=== PATIENT | female | born 1940 | race Caucasian/White ===

== ENCOUNTER 2017-01-27 06:31 | Day surgery (SDC) | payer MEDICARE, OTHER ==
--- NOTE | ~2017-01-27 | EGD ---
EGD REPORT [facility] [address] [address] NAME: ERLIN BEJARANO : [birth year] STATUS : REG [facility]#: [id number] AGE: 76 ADM/REG DATE : 01/27/17 MR#: [id number] REPORT SERV DATE: 01/27/17 DICTATED BY: RAFAEL OWENS DATE: 01/27/17 REPORT STATUS : Draft TRANSCRIBED BY: [facility] DATE: 01/27/17 Endoscopy Center Patient Name: Erlin Bejarano Date of : 1940 Attending MD: RAFAEL OWENS MD Procedure Date No Time: 01/27/2017 Procedure: Colonoscopy Indications: Screening for colorectal malignant neoplasm Referring MD: ZAKIA ROLLINS MD Medicines: Propofol per Anesthesia Complications: No immediate complications. Procedure: Pre-Anesthesia Assessment: - ASA Grade Assessment: [ASA Grade]. - ASA Grade Assessment: III - A patient with severe systemic disease. After I obtained informed consent, the scope was passed under direct vision. Throughout the procedure, the patient's blood pressure, pulse, and oxygen saturations were monitored continuously. The [facility] H190L [id number] was introduced through the anus and advanced to the sigmoid colon. The colonoscopy was performed without difficulty. The quality of the bowel preparation was inadequate. The colonoscopy was aborted due to poor bowel prep with stool present. The colonoscopy was performed without difficulty. The colonoscopy was aborted due to poor bowel prep. Findings: Impression: - Preparation of the colon was inadequate. - The procedure was aborted due to poor bowel prep with stool present. - The procedure was aborted due to poor bowel prep. Recommendation: - Continue present medications. - Repeat colonoscopy because the bowel preparation was poor. - The findings and recommendations were discussed with the patient and their family. - After the procedure, if you experience any pain in abdomen or chest,shortness of breath,fever,chills,blood in stool,rectal bleeding,vomiting of any material,nausea,black stools or weakness or dizziness, GO TO THE EMERGENCY IMMEDIATELY!!!!!!!!! EGD REPORT [address] [address] NAME: ERLIN BEJARANO : [birth year] STATUS : REG [facility]#: [id number] AGE: 76 ADM/REG DATE : 01/27/17 MR#: [id number] REPORT SERV DATE: 01/27/17 DICTATED BY: RAFAEL OWENS. DATE: 01/27/17 REPORT STATUS : Draft TRANSCRIBED BY: [employer] DATE: 01/27/17 Procedure Code(s): --- Professional --- 32159, 53, Colonoscopy, flexible, proximal to splenic flexure; diagnostic, with or without collection of specimen(s) by brushing or washing, with or without colon decompression (separate procedure) Diagnosis Code(s): --- Professional --- Z53.8, Procedure and treatment not carried out for other reasons Z12.11, Encounter for screening for malignant neoplasm of colon CPT copyright 2013 [employer]. All rights reserved. The codes documented in this report are preliminary and upon stoker mechanic review may be revised to meet current compliance requirements. Rafael Owens MD RAFAEL OWENS MD 01/27/2017 8:43 AM This report has been signed electronically. Number of Addenda: 0 Note Initiated On: 01/27/2017 7:34 AM Scope Withdrawal Time 0 hours 0 minutes 0 seconds [address] [address]
--- NOTE | ~2017-01-27 | HP ---
History And Physical [place] [id number] [facility] [place]. [address] NAME: RELIN MCKEON : [birth year] STATUS : [facility]#: [id number] AGE: 77 ADM/REG DATE : 01/27/17 MR#: [id number] REPORT SERV DATE: 02/23/17 DICTATED BY: RAFAEL NICE DATE: 02/22/17 REPORT STATUS : Draft TRANSCRIBED BY: [employer] DATE: 02/22/17 DATE OF ADMISSION: 01/27/2017 CHIEF COMPLAINT: Dysphagia, routine screening colonoscopy. HISTORY OF PRESENT ILLNESS: This patient is sent as having some dysphagia. She is due for bhakta . 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 She does have a history of insulin-dependent diabetes mellitus, hypertension, GERD. For medicines, see the attached list, seen in the procedural history and physical form. PHYSICAL EXAMINATION: GENERAL: Obese female. VITAL SIGNS: Blood pressure looks younger than stated age. She is 5 feet 2 inches, weight 220, blood pressure 107/68, 02 saturation 95%. HEENT: Head normocephalic. Pupils equal, trachea midline. Oropharynx normal NMP score. CHEST: Clear to auscultation and percussion. ABDOMEN: Soft, nontender. CARDIAC: No murmur or gallop. She has some mild lower extremity edema. NEURO: Motor and sensory grossly intact. Affect is appropriate. IMPRESSION: 1. Morbidly obese. 2. Dysphagia. 3. Routine screening for colonoscopy. PLAN: EGD/dil/colonoscopy. This is an addendum to the short form that was done on 01/27/2017. MG/CATERINA Rafael Nice M.D. / [id number] CC: Marleny Ragsdale M.D.
--- NOTE | ~2017-01-27 | EGD ---
EGD REPORT [facility] [address] [address] NAME: ERLIN BEJARANO : 44 STATUS : REG [facility]#: [id number] AGE: 76 ADM/REG DATE : 01/27/17 MR#: [id number] REPORT SERV DATE: 01/27/17 DICTATED BY: RAFAEL OWENS DATE: 01/27/17 REPORT STATUS : Draft [facility] DATE: 01/27/17 Endoscopy Center Patient Name: Erlin Bejarano Date of : 1940 Attending MD: RAFAEL OWENS MD Procedure Date No Time: 01/27/2017 Procedure: Upper GI endoscopy Indications: Dysphagia Referring MD: ZAKIA ROLLINS MD Medicines: Propofol per Anesthesia Complications: No immediate complications. Procedure: Pre-Anesthesia Assessment: - ASA Grade Assessment: III - A patient with severe systemic disease. After obtaining informed consent, the endoscope was passed under direct vision. Throughout the procedure, the patient's blood pressure, pulse, and oxygen saturations were monitored continuously. The GIF H190 [id number] was introduced through the mouth, and advanced to the second part of duodenum. The upper GI endoscopy was accomplished without difficulty. The patient tolerated the procedure well. Findings: LA Grade A (one or more mucosal breaks less than 5 mm, not extending between tops of 2 mucosal folds) esophagitis with no bleeding was found at the gastroesophageal junction. A benign-appearing, intrinsic mild stenosis was found at the gastroesophageal junction and was traversed. A guidewire was placed and the scope was withdrawn. Dilation was performed with a Savary dilator with no resistance at 54 Fr. The entire examined stomach was normal. The examined duodenum was normal. Impression: - LA Grade A erosive esophagitis. - Benign-appearing esophageal stricture. Dilated. - Normal stomach. - Normal examined duodenum. Recommendation: - The patient will be observed post-procedure, until all discharge criteria are met. - The findings and recommendations were discussed with the patient and their family. - After the procedure, if you experience any pain in abdomen or chest,shortness of breath,fever,chills,blood EGD REPORT [address] [address] NAME: ERLIN BEJARANO : 44 [place]US : [place] [facility] [place]#: [id number] AGE: 76 ADM/REG DATE : 01/27/17 MR#: [id number] REPORT SERV DATE: 01/27/17 DICTATED BY: RAFAEL OWENS DATE: 01/27/17 REPORT STATUS : Draft TRANSCRIBED BY: [employer] DATE: 01/27/17 in stool,rectal bleeding,vomiting of any material,nausea,black stools or weakness or dizziness, GO TO THE EMERGENCY IMMEDIATELY!!!!!!!!! Procedure Code(s): --- Professional --- 26428, Esophagogastroduodenoscopy, flexible, transoral; with insertion of guide wire followed by passage of dilator(s) through esophagus over guide wire Diagnosis Code(s): --- Professional --- K20.8, Other esophagitis K22.2, Esophageal obstruction R13.10, Dysphagia, unspecified CPT copyright 2013 [employer]. All rights reserved. The codes documented in this report are preliminary and upon finisher plate review may be revised to meet current compliance requirements. Rafael Owens MD RAFAEL OWENS MD 01/27/2017 8:40 AM This report has been signed electronically. Number of Addenda: 0 Note Initiated On: 01/27/2017 7:32 AM Scope Withdrawal Time 0 hours 0 minutes 0 seconds [id number] [address]
[~2017-01-27 06:31] MED LIST: ASAB PO; CALTRA600D PO; COSAMIN DS1 TAB PO; EFFEX37.5 PO; FIBERCON PO; GLUCCHONDR PO; GLUCPH PO; HUMULIN SC; HYZAAR1 TAB PO; KLONO5 PO; KLOR-CON M2020 MEQ PO; L20 PO; L40 PO; LORT7; MELA3 PO; MELATONIN1 M1 PO; MELATONIN2.5 M1 PO; MIRALAXPKT PO; MIRAPEX5 PO; MOBIC15 MG PO; MULTIVIT/MIN PO; MVI PO; NOR50 PO; OS500+D PO; PEP20 PO; PRAVAC PO; PRILO PO; REQUIP XL2 MG PO; REQUIP XL4 MG PO; REQUIP1 PO; ULTRACET PO; ULTRAM50 PO; VOLT75 PO; ZESTRIL10 MG PO; [UNRECOGNIZED DRUG - CODE] PO; [UNRECOGNIZED DRUG - OTHER] PO
== END 2017-01-27 23:59 | disposition home or self-care (01) ==
LOC: DMU 06:31
PROVIDERS: Internal Medicine Gastroenterology
PROC: 0DJD8ZZ Inspection of Lower Intestinal Tract, Via Natural or Artificial Opening Endoscopic (ICD-10-PCS; principal; 2017-01-27 08:00)
PROC: 0D748ZZ Dilation of Esophagogastric Junction, Via Natural or Artificial Opening Endoscopic (ICD-10-PCS; 2017-01-27 08:00)
DX: Z12.11 Encounter for screening for malignant neoplasm of colon (principal); K22.2 Esophageal obstruction; K20.8 Other esophagitis; E66.9 Obesity, unspecified; E11.8 Type 2 diabetes mellitus with unspecified complications; I10 Essential (primary) hypertension; K21.9 Gastro-esophageal reflux disease without esophagitis; G47.33 Obstructive sleep apnea (adult) (pediatric); M50.30 Other cervical disc degeneration, unspecified cervical region; Z88.1 Allergy status to other antibiotic agents; Z79.52 Long term (current) use of systemic steroids; Z79.4 Long term (current) use of insulin; Z79.899 Other long term (current) drug therapy; Z96.653 Presence of artificial knee joint, bilateral; Z90.49 Acquired absence of other specified parts of digestive tract; Z98.890 Other specified postprocedural states
CPT/HCPCS: 82962

== ENCOUNTER 2017-01-28 07:15 | Day surgery (SDC) | payer MEDICARE, OTHER ==
--- NOTE | ~2017-01-28 | EGD ---
EGD REPORT [facility] [address] [address] NAME: ERLIN BEJARANO : 44 STATUS : REG [facility]#: [id number] AGE: 76 ADM/REG DATE : 01/28/17 MR#: [id number] REPORT SERV DATE: 01/28/17 DICTATED BY: RAFAEL OWENS DATE: 01/28/17 REPORT STATUS : Draft [facility]: [facility] DATE: 01/28/17 Endoscopy Center Patient Name: Erlin Bejarano Date of : 1940 Attending MD: RAFAEL OWENS MD Procedure Date No Time: 01/28/2017 Procedure: Colonoscopy Indications: Screening for colorectal malignant neoplasm Referring MD: ZAKIA ROLLINS MD Medicines: Propofol per Anesthesia Complications: No immediate complications. Procedure: Pre-Anesthesia Assessment: - ASA Grade Assessment: III - A patient with severe systemic disease. After I obtained informed consent, the scope was passed under direct vision. Throughout the procedure, the patient's blood pressure, pulse, and oxygen saturations were monitored continuously. The PCF H190L [id number] was introduced through the anus and advanced to the cecum, identified by the appendiceal orifice, IC valve and transillumination. The colonoscopy was performed without difficulty. The patient tolerated the procedure well. The quality of the bowel preparation was good. Findings: A few small-mouthed diverticula were found in the sigmoid colon. The exam was otherwise normal throughout the examined colon. Impression: - Diverticulosis in the sigmoid colon. Recommendation: - The patient will be observed post-procedure, until all discharge criteria are met. - Return to previous diet today. - Repeat colonoscopy in 10 years for screening purposes. - The findings and recommendations were discussed with the patient and their designated guardian. - After the procedure, if you experience any pain in abdomen or chest,shortness of breath,fever,chills,blood in stool,rectal bleeding,vomiting of any material,nausea,black stools or weakness or dizziness, GO TO THE EMERGENCY IMMEDIATELY!!!!!!!!! Procedure Code(s): --- Professional --- 19234, Colonoscopy, flexible, proximal to splenic flexure; diagnostic, with or without collection of EGD REPORT [address] [address] NAME: ERLIN BEJARANO : 44 [place]US : [place] [facility] [place]#: [id number] AGE: 76 ADM/REG DATE : 01/28/17 MR#: [id number] REPORT SERV DATE: 01/28/17 DICTATED BY: RAFAEL OWENS. DATE: 01/28/17 REPORT STATUS : Draft TRANSCRIBED BY: [employer] DATE: 01/28/17 specimen(s) by brushing or washing, with or without colon decompression (separate procedure) Diagnosis Code(s): --- Professional --- K57.30, Diverticulosis of large intestine without perforation or abscess without bleeding Z12.11, Encounter for screening for malignant neoplasm of colon CPT copyright 2013 [employer]. All rights reserved. The codes documented in this report are preliminary and upon independent consultant review may be revised to meet current compliance requirements. Rafael Owens MD RAFAEL OWENS MD 01/28/2017 8:22 AM This report has been signed electronically. Number of Addenda: 0 Note Initiated On: 01/28/2017 7:29 AM Scope Withdrawal Time 0 hours 7 minutes 55 seconds [address] [address]
== END 2017-01-28 23:59 | disposition home or self-care (01) ==
LOC: DMU 07:15
PROVIDERS: Internal Medicine Gastroenterology
PROC: 0DJD8ZZ Inspection of Lower Intestinal Tract, Via Natural or Artificial Opening Endoscopic (ICD-10-PCS; principal; 2017-01-28 07:30)
DX: Z12.11 Encounter for screening for malignant neoplasm of colon (principal); K57.30 Diverticulosis of large intestine without perforation or abscess without bleeding; F98.8 Other specified behavioral and emotional disorders with onset usually occurring in childhood and adolescence; E11.9 Type 2 diabetes mellitus without complications; R32 Unspecified urinary incontinence; K44.9 Diaphragmatic hernia without obstruction or gangrene; M19.90 Unspecified osteoarthritis, unspecified site; M79.7 Fibromyalgia; G47.33 Obstructive sleep apnea (adult) (pediatric); I10 Essential (primary) hypertension; R42 Dizziness and giddiness; H26.9 Unspecified cataract; H91.90 Unspecified hearing loss, unspecified ear; G25.81 Restless legs syndrome; Z90.49 Acquired absence of other specified parts of digestive tract; Z96.653 Presence of artificial knee joint, bilateral; Z98.890 Other specified postprocedural states; Z90.81 Acquired absence of spleen; Z87.891 Personal history of nicotine dependence; Z97.4 Presence of external hearing-aid; Z88.1 Allergy status to other antibiotic agents; Z79.899 Other long term (current) drug therapy; Z79.891 Long term (current) use of opiate analgesic; Z79.4 Long term (current) use of insulin; Z79.84 Long term (current) use of oral hypoglycemic drugs
CPT/HCPCS: 82962